=== PATIENT | female | born 1985 | race Caucasian/White ===

== ENCOUNTER 2023-07-30 13:08 | Emergency (ER) | payer OTHER, SELFPAY ==
[2023-07-30 13:12] VITALS: BP 133/90
[2023-07-30 13:44] LABS: COVID-19 Antigen Positive (Negative)
--- NOTE | 2023-07-30 14:39 | ED.GENMED ---
History of Present Illness
General
Chief Complaint: Headache
Time Seen by Provider: 07/30/23 14:34
Travel History
Have you had any contact with someone who has COVID-19?: No
Do you have any symptoms of coronavirus? Fever > 100 degrees, chills, cough, shortness of breath, sore throat, loss of taste or smell, muscle aches, or headache?: No
History of Present Illness
History of Present Illness:
Patient is a 38-year-old female with no reported chronic medical problems here today for evaluation of 3 days of a mild headache associated with neck pain and fever/chills. No vomiting. No numbness or tingling. No focal weakness. She has been
able to tolerate p.o. Patient was seen at urgent care prior to arrival and ultimately directed to the emergency department given symptoms.
Review of Systems
Review of Systems
All Other Systems: ROS reviewed and negative except as documented in HPI and ROS
Phy Exam
Physical Exam
Physical Exam:
GENERAL: Alert , in no apparent distress
EYE: pupils equal and reactive
NECK: Supple, no significant adenopathy. No rigidity. Full ROM.
ENT: o/p clr, mmm.
CARDIAC: Regular rate and rhythm .
LUNGS: Clear breath sounds bilaterally, no acute respiratory distress, no wheezes/rales/rhonchi
ABDOMEN: Soft, without focal tenderness, no r/g, no cvat
NEUROLOGICAL: Alert and oriented, no focal neuro deficits, moving all extremities, cranial nerves 2 through 12 intact
SKIN: Warm and dry, skin intact.
MUSCULOSKELETAL: No edema, well perfused.
PSYCH: Normal and appropriate interaction.
Course
Orders/Labs/Results
Orders:
Orders
07/30/23 13:22
COVID-19 Antigen Urgent
Source: Nasal Swab
Influenza A+B Rapid Molecular Urgent
ARMANI Source: Nasal Swab
Specimen Description:
Abnormal Lab Results
07/30/23
13:22
SARS-CoV-2 Antigen Positive A
(Negative)
Vital Signs
Pulse: 92
Initial and Last Documented VS:
Initial Vital Signs
Temp Pulse Resp BP Pulse Ox
99.0 F 126 20 133/90 98
07/30/23 13:12 07/30/23 13:12 07/30/23 13:12 07/30/23 13:12 07/30/23 13:12
Last Documented Vital Signs
Temp Pulse Resp BP Pulse Ox
99.0 F 92 20 133/90 98
07/30/23 13:12 07/30/23 14:53 07/30/23 13:12 07/30/23 13:12 07/30/23 13:12
MDM/Problems Addressed
Differential Diagnosis Includes:
Patient is a 38-year-old female with no reported chronic medical problems here today for evaluation of 3 days of a mild headache associated with neck pain and fever/chills. Overall, patient appears very well. She is neurologically intact without
acute focal deficits appreciated. She has no meningismus and no clinical signs of meningitis at this time. Rapid COVID testing was performed which is positive. Patient made aware of all findings. Findings consistent with COVID-19 viral
infection. Will recommend supportive measures at this time and close follow-up. Will not provide Paxlovid given age and lack of medical problems. Patient voices understanding. She appears well and stable for discharge. All questions answered.
*Critical Care Note
Total Time (30-74mins, 75-104mins- exclusive of procedures): Not Applicable
ED Attending Note
-
Portions of this chart may have been created with voice recognition software.� Occasional wrong word or��sound alike� substitutions may have occurred due to the inherent limitations of voice recognition software.
Discharge Plan
Departure
Patient Disposition: Home (Routine Discharge)
Date of Disposition: 07/30/23
Time of Disposition: 14:56
Patient with high blood pressure during this ER visit?: No
Condition: Good
Covid-19: Confirmed COVID-19
Discharge Problem:
COVID-19
Instructions: COVID-19 ED
Prescriptions:
New
ibuprofen 600 mg tablet
600 mg PO Q6H PRN (Reason: pain) 3 Days Qty: 12 0RF
No Action
cetirizine [Zyrtec] 5 MG tablet
5 mg PO PRN PRN (Reason: seasonal allergy)
Vitamins
1 mg PO DAILY
ibuprofen 600 MG tablet
600 mg PO Q4HPRN PRN (Reason: moderate pain/cramps) 0RF
Referrals:
Efraín Chowdhury MD [Family Provider] - Follow up in 5-7 days
Activity Restrictions/Additional Instructions:
You are testing positive for COVID�19 today.
Rest. Drink plenty of fluids. Take the prescribed ibuprofen as directed as needed for pain.
Follow-up with your doctor within the next 5 to 7 days for close reevaluation.
Return for any new, worsening, or concerning symptoms.
Interventions
Interventions:
*Risk Screen - Suicide Last Done: 07/30/23 13:12
*General Assessment Last Done: 07/30/23 13:12
*Neglect/Abuse Screening Last Done: 07/30/23 13:12
ED- Fall Risk Assessment Last Done: 07/30/23 15:07
*ED COVID-19 Vaccine History Last Done: 07/30/23 15:07
*Nursing Disposition Last Done: 07/30/23 15:07
ED- Neurological Assessment Last Done: 07/30/23 15:07
Discharge Date and Time
Discharge Date/Time: 07/30/23 15:08
Print Language: HUNGARIAN
== END 2023-07-30 15:08 | disposition home or self-care (01) ==
LOC: EMR 13:08
PROVIDERS: EMERGENCY PHYSICIAN Student in an Organized Health Care Education/Training Program; FAMILY PHYSICIAN Family Medicine
DX: U07.1 COVID-19 (principal)
CPT/HCPCS: 99282; 87502; 87811

== ENCOUNTER 2024-12-15 13:24 | Emergency (ER) | payer OTHER, SELFPAY ==
[2024-12-15 13:26] VITALS: BP 145/83
[2024-12-15 13:39] LABS: Hematocrit 39.7 % (37.0-47.0); Hemoglobin 13.4 g/dL (12.0-16.0); Mean Corp Hgb Conc. 33.8 g/dL (33.0-37.0); Mean Corpuscular Volume 83.6 fL (81.0-99.0); Nucleated Red Blood Cells % 0 %; Platelet Count 207 10^3/uL (130-400); Red Cell Dist. Width 12.5 % (11.5-14.5)
[2024-12-15 13:52] LABS: ALT (SGPT) 24 U/L (0-35); AST (SGOT) 27 U/L (14-36); Albumin 4.6 g/dl (3.5-5.0); Alkaline Phosphatase 61 U/L (38-126); Blood Urea Nitrogen 14 mg/dl (7-17); Calcium 9.1 mg/dl (8.4-10.2); Carbon Dioxide 24 mmol/L (22-30); Chloride 107 mmol/L (98-107); Glucose 109 mg/dl (70-99); Lipase 84 U/L (23-300); Potassium 4.5 mmol/L (3.5-5.1); Sodium 137 mmol/L (135-145); Total Protein 7.1 g/dl (6.3-8.2); eGFR > 60.00
[2024-12-15 14:12] LABS: Urine Character Clear (Clear)
[2024-12-15 14:30] LABS: Urine Red Blood Cell 30-40 /HPF (0-2); Urine White Cell 0-2 /HPF (0-5)
--- NOTE | 2024-12-15 17:05 | ED.GENMED ---
History of Present Illness
General
Chief Complaint: Abdominal Pain
Time Seen by Provider: 12/15/24 17:05
History of Present Illness
History of Present Illness:
FOCUSED PAST MEDICAL HISTORY
- The patient is fairly healthy, had COVID-19 and had in the past
REVIEW OF OLD RECORDS
- The patient had vaginal delivery in 2017 here at [place]
Note:
CHIEF COMPLAINT(S)
Severe right-sided abdominal pain radiating to the back with hematuria.
HISTORY OF PRESENT ILLNESS
The patient is a 39-year-old female who initially presented to urgent care with urinary symptoms. A urinalysis there showed leukocyte esterase in the urine. The patients urine was sent for culture, but she is unaware of any follow-up results. Today,
she experienced sudden onset of severe right-sided abdominal pain radiating to her back, lasting for at least four hours, and described the pain severity as initially very high, stating, 'the pain is so bad on that side.' She also reported that
there was some shooting pain at the back. Although the pain has since decreased significantly, the patient expresses feeling as if 'something is still going on there.' The patient denies being on her menstrual cycle at this time, despite visible
hematuria.
Additionally, the patient mentioned experiencing loose stools, though she is uncertain of its connection to her current symptoms. There is no evidence of increased white cells in todays urinalysis. The patient has a high tolerance for pain and
declined intravenous pain management.
PAST MEDICAL AND SURGICAL HISTORY
Reported past urinalysis showing leukocytes.
SOCIAL DETERMINANTS AFFECTING HEALTH
According to the patient, there are no immediate work-related or financial stressors affecting her current situation.
PHYSICAL EXAM
General: Alert, no acute distress.
Skin: Warm, dry.
Head: Normocephalic, atraumatic.
Neck: Supple, trachea midline.
Ear Ears, nose, mouth, and throat: Oral mucosa moist.
Cardiovascular: Normal peripheral perfusion, no edema.
Respiratory: Respirations are non-labored.
Gastrointestinal: Abdomen nondistended. No significant abdominal tenderness on the right side, no CVA tenderness on the right
Back: Normal range of motion, normal alignment.
Musculoskeletal: Normal range of motion, normal strength.
Neurological: Alert and oriented to person, place, time, and situation, no focal neurological deficit observed.
Psychiatric: Cooperative, appropriate mood and affect.
PLAN
The plan is to perform a computed tomography (CT) scan of the abdomen to investigate the possibility of kidney stones, given the patients symptoms of right-sided pain and hematuria. A blood test will be performed as a precautionary measure
before proceeding with the CT scan. The patient does not require any intravenous contrast for the CT scan since the primary concern is detecting potential kidney stones.
DIFFERENTIAL DIAGNOSIS
The Differential Diagnosis includes, in no particular order and is not limited to:
1. Kidney stones (nephrolithiasis)
2. Urinary tract infection
3. Gynecologic pathology (e.g., ovarian cyst, ectopic )
4. Acute appendicitis
5. Pyelonephritis
6. Gastroenteritis
7. Diverticulitis
8. Musculoskeletal pain
9. Constipation with colonic distension
10. Renal colic
RADIOLOGY
- CT imaging obtained
EKG
-
LABS
- CBC normal, chemistries unremarkable, lipase 84, urine shows 0-2 white cells per high-powered field, negative nitrite, negative leukocyte esterase, blood noted
UPDATE
-SUMMARY OF ENCOUNTER
The patient, a 39-year-old female, was seen in the emergency department for severe right-sided abdominal pain radiating to the back. A CT scan previously showed the presence of kidney stones, one definitively located in the ureter and potentially
another highlighted by the radiologist. The stones are small and located distally, indicating a high likelihood of passing without intervention. The patient had declined intravenous pain management initially, expressing a desire to eat before taking
any medication. After discussion, prescriptions for oxycodone with acetaminophen (Percocet) for pain management, ondansetron (Zofran) for nausea, and tamsulosin (Flomax) to potentially aid in stone passage were provided. Patient education regarding
the nature of kidney stones, potential causes such as calcium oxalate accumulation from dietary habits, and options for urine straining and stone analysis were discussed.
DISPOSITION
Discharge.
ASSESSMENT
The patient presents with likely nephrolithiasis, exhibiting classic symptoms of kidney stones such as severe abdominal pain and hematuria. Radiology findings are consistent with small, distal stones likely to pass naturally.
PLAN
The plan includes managing the patients symptoms with prescribed medications: Percocet for severe pain, Zofran if needed for nausea, and Flomax to facilitate the passage of kidney stones. The patient will follow up with a urologist for further
evaluation and management if the situation persists or recurs.
INDEPENDENT REVIEW OF LABS AND INTERPRETATION OF TESTS
My independent interpretation of the CT scan indicates the presence of small kidney stones, one in the ureter and potentially another, with a high chance of passing on their own due to their size and location.
PATIENT EDUCATION AND COUNSELING
The patient was educated on the potential causes of kidney stones, such as dietary calcium oxalate. Recommendations to limit potential dietary contributors, like high protein or tea, were discussed. The patient was advised to collect any passed
stones for later analysis if needed, assisting in future diet or lifestyle modifications based on stone composition.
FOLLOW-UP INSTRUCTIONS
The patient was advised to follow up with a urologist for further evaluation and stone analysis. A specific urologists information was provided.
MEDICATION RECONCILIATION
1. Prescription sent for oxycodone with acetaminophen (Percocet).
2. Prescription for ondansetron (Zofran) to manage nausea, as needed.
3. Prescription for tamsulosin (Flomax) to aid in the passage of kidney stones.
MEDICAL DECISION MAKING
- Number and Complexity of Problems Addressed: Chronic conditions affecting care include a past history of urinary leukocytes and current kidney stones. Differential Diagnosis: 1. Kidney stones (nephrolithiasis) 2. Urinary tract infection 3.
Gynecologic pathology 4. Acute appendicitis 5. Pyelonephritis 6. Gastroenteritis 7. Diverticulitis 8. Musculoskeletal pain 9. Constipation with colonic distension 10. Renal colic.
- Data:
Category 1
Tests and documents: CT scan independently reviewed, revealing small, distal stones in the ureter.
Category 3
Discussion with the patient regarding management included medication options and follow-up recommendations with urology.
- Risk:
Prescription medication was prescribed for pain management (Percocet) and management of nausea (Zofran). Consideration of Admission/Observation: Escalation of care including admission/observation was considered given the complexity and risk of the
patients presenting complaint, exam findings, and/or their underlying comorbidities. However, ultimately, I feel the patient is safe for outpatient management with close follow-up. Reasoning: Work-up reassuringly does not reveal any acute
life/organ-threatening processes, patient�s symptoms well controlled upon reevaluation, reexamination is reassuring, vitals are stable, patient agreeable with discharge, reliable for follow-up.
DIAGNOSIS
Ureteral stones with colic
Phy Exam
Physical Exam
Physical Exam:
See HPI
Course
Orders/Labs/Results
Orders:
Orders
12/15/24 13:31
Complete Blood Count/With Diff Urgent
Comprehensive Metabolic Panel Urgent
HCG, Serum Qualitative Screen Urgent
Comment: ADDON
Lipase Urgent
Urinalysis Reflex To Culture Urgent
Date Specimen was Collected: 12/15/24
Time Specimen was Collected: 13:29
Urine Microscopic Reflex Cult Urgent
12/15/24 17:06
Add On- LAB Urgent
Tests Added?: serum hcg screen
12/15/24 17:12
CT Abd/pel Without Iv Or Oral Urgent
Comment:
Reason For Exam: R pain severe; hematuria
Abnormal Lab Results
12/15/24
13:31
Absolute Neuts (auto) 9.6 H 10^3/uL
(1.4-6.5)
Absolute Lymphs (auto) 0.5 L 10^3/uL
(1.2-3.4)
Neutrophils % 91.2 H %
(42.2-75.2)
Lymphocytes % 4.4 L %
(20.5-51.1)
Glucose 109 H mg/dl
(70-99)
Total Bilirubin 1.4 H mg/dl
(0.2-1.3)
Ur Occult Blood Reflex 4+ A
(Negative)
Urine RBC 30-40 A /HPF
(0-2)
Urine Bacteria (Reflex) Few A
(Negative)
Urine Albumin (Reflex) 1+ A
(Neg - Trace)
12/15/24 13:31
12/15/24 13:31
Vital Signs
Initial and Last Documented VS:
Initial Vital Signs
Temp Pulse Resp BP Pulse Ox
37.2 C 81 18 145/83 98
12/15/24 13:26 12/15/24 13:26 12/15/24 13:26 12/15/24 13:26 12/15/24 13:26
Last Documented Vital Signs
Temp Pulse Resp BP Pulse Ox
37.2 C 81 18 115/80 99
12/15/24 13:26 12/15/24 13:26 12/15/24 13:26 12/15/24 17:51 12/15/24 17:53
*Pulse Oximetry
SaO2: 98
Patient hypoxic: no
*Critical Care Note
Total Time (30-74mins, 75-104mins- exclusive of procedures): Not Applicable
ED Attending Note
-
Portions of this chart may have been created with voice recognition software.� Occasional wrong word or��sound alike� substitutions may have occurred due to the inherent limitations of voice recognition software.
Discharge Plan
Departure
Patient Disposition: Home (Routine Discharge)
Date of Disposition: 12/15/24
Time of Disposition: 19:17
Patient with high blood pressure during this ER visit?: Yes
Discharge Problem:
Right distal ureteral calculus
Instructions: Kidney Stones (DC), BLOOD PRESSURE
Prescriptions:
New
oxycodone-acetaminophen [Percocet] 5-325 mg tablet
1 - 2 tab PO Q6HPRN PRN (Reason: pain) Qty: 14 0RF
ondansetron HCl 4 mg tablet
4 mg PO Q8H PRN (Reason: nausea and vomiting) Qty: 14 0RF
tamsulosin [Flomax] 0.4 mg capsule
0.4 mg PO DAILY Qty: 14 0RF
No Action
cetirizine [Zyrtec] 5 MG tablet
5 mg PO PRN PRN (Reason: seasonal allergy)
Vitamins
1 mg PO DAILY
ibuprofen 600 MG tablet
600 mg PO Q4HPRN PRN (Reason: moderate pain/cramps) 0RF
ibuprofen 600 mg tablet
600 mg PO Q6H PRN (Reason: pain) 3 Days Qty: 12 0RF
Referrals:
Efraín Chowdhury MD [Family Provider]
Activity Restrictions/Additional Instructions:
The urinalysis shows no sign of infection but does show blood. Blood in the urine is commonly due to kidney stones to get stuck in the ureter. On the CAT scan, you have several nonobstructing stones in both kidneys. When they stay in the kidney,
they would not cause any pain. However on the right side, you do have a 2 mm stone in the distal right ureter and a 3 mm stone at the right UVJ. I recommend 3-4 [id number] ibuprofen (Motrin) every 8 hours with food for a few days. Return
here if worse. Follow-up with urologist such as Dr. Raymond.
Interventions
Interventions:
*Risk Screen - Suicide Last Done: 12/15/24 13:28
*General Assessment Last Done: 12/15/24 17:53
*Neglect/Abuse Screening Last Done: 12/15/24 13:28
*ED- Fall Risk Assessment Last Done: 12/15/24 17:53
*ED COVID-19 Vaccine History Last Done: 12/15/24 17:53
*Nursing Disposition Last Done: 12/15/24 19:37
[facility]-Bbqulc-Tltvpruqdn Assessment Last Done: 12/15/24 17:53
Discharge Date and Time
Discharge Date/Time: 12/15/24 19:39
Print Language: BAHRAINI
[2024-12-15 17:51] VITALS: BP 115/80
[2024-12-15 17:52] VITALS: BMI 33.5
[2024-12-15 17:57] LABS: HCG, Serum Qualitative Screen Negative
== END 2024-12-15 19:39 | disposition home or self-care (01) ==
LOC: EMR 13:24
PROVIDERS: Emergency Medicine; EMERGENCY PHYSICIAN Emergency Medicine; FAMILY PHYSICIAN Family Medicine
DX: N13.2 Hydronephrosis with renal and ureteral calculous obstruction (principal)
CPT/HCPCS: 99284; 74176; 80053; 81003; 81015; 83690; 84703; 85025